=== PATIENT | male | born 1960 | race Caucasian/White ===

== ENCOUNTER 2019-12-20 13:05 | Outpatient (CLI) | payer OTHER, SELFPAY ==
--- NOTE | 2019-12-20 13:44 | MR_ITS ---
WS: [id number] MRI LEFT KNEE NONCONTRAST TECHNIQUE: Axial PD, coronal PD fat sat, coronal PD, sagittal PD, and sagittal PD fat-sat images obta ined. CLINICAL INFORMATION: LEFT KNEE INTERNAL DERANGEMENT COMPARISON: None. FINDINGS: Normal anatomic alignment. Anterior and posterior cruciate ligaments appear intact. Distal quadriceps and patella tendons are intact. Hypertrophic patella. Normal medial and lateral meniscus. No acute a ppearing meniscal tears. Mild chondromalacia patella. No subchondral edema. Normal medial and lateral patella retinaculum. Medial and lateral collateral ligaments appear intact . Normal tibial plateau. Normal popliteal fossa. Mild chondromalacia involving the medial and lateral joint compartments. MR/MR knee LT wo con* [id number] IMPRESSION: 1. Anterior posterior cruciate ligaments are intact. No evidence of high-grade injury. 2. Normal medial lateral meniscus. No acute appearing meniscal tears. 3. Mild chondromalacia patella. No subchondral edema. Hypertrophic patella. 4. Medial and lateral collateral ligaments are intact. 5. No other significant findings.
== END 2019-12-20 13:06 | disposition home or self-care (01) ==
PROVIDERS: PCP Internal Medicine; Visit Provider Internal Medicine
DX: M23.92 Unspecified internal derangement of left knee (principal); M22.42 Chondromalacia patellae, left knee
CPT/HCPCS: 73721

== ENCOUNTER 2020-01-03 09:38 | Outpatient (RCR) | payer OTHER, SELFPAY | END 2020-01-06 23:59 | disposition home or self-care (01) | LOC: SPT 09:38 | PROVIDERS: PCP Internal Medicine; Referring Provider Orthopaedic Surgery; Visit Provider Orthopaedic Surgery | DX: M25.562 Pain in left knee (principal) | CPT/HCPCS: 97032; 97110; 97161 ==

== ENCOUNTER 2020-01-07 06:00 | Outpatient (RCR) | payer OTHER, SELFPAY | END 2020-02-06 23:59 | disposition home or self-care (01) | LOC: SPT 06:00 | PROVIDERS: PCP Internal Medicine; Referring Provider Orthopaedic Surgery; Visit Provider Orthopaedic Surgery | DX: M25.562 Pain in left knee (principal) | CPT/HCPCS: 97032; 97110; G0283 ==

== ENCOUNTER 2021-03-22 11:53 | Outpatient (CLI) | payer BC, SELFPAY ==
[2021-03-22 12:15] VITALS: BMI 29.8
[2021-03-22 12:18] VITALS: BP 119/78; PULSE 103; RESP 18; TEMP 36.6; O2SAT 96
[2021-03-22 12:41] VITALS: BP 113/76; PULSE 93; RESP 18; TEMP 36.9; O2SAT 96
[2021-03-22 13:40] VITALS: BP 116/78; PULSE 92; RESP 18; TEMP 37.6; O2SAT 95
== END 2021-03-22 11:54 | disposition home or self-care (01) ==
LOC: OPS 11:59
PROVIDERS: PCP Internal Medicine; Visit Provider Nurse Practitioner
DX: U07.1 COVID-19 (principal)
CPT/HCPCS: 96365

== ENCOUNTER 2021-06-05 08:08 | Observation (INO) | payer BC, SELFPAY ==
[2021-06-05] VITALS (10 sets, daily range): BP systolic 125–158; BP diastolic 74–96; PULSE 71–101; RESP 16–18; TEMP 36.6–36.9; O2SAT 94–99; BMI 28.7
--- NOTE | 2021-06-05 08:39 | CT_ITS ---
WS: [id number] CT HEAD TECHNIQUE: Noncontrast CT of the head obtained from the skullbase to the vertex. CLINICAL INFORMATION: Symptoms of Acute Stroke COMPARISON: May 05, 2017 DLP: 1063.[address] scans at [facility] use at least one of these dose optimization techniques: automated e xposure control; mA and/or kV adjustment per patient size (includes targeted exams where dose is matc hed to clinical indication); or iterative reconstruction. FINDINGS: No evidence of intracranial hemorrhage or mass effect. Ventricular system and basal cisterns are mast nt. Mild small vessel changes with mild parenchymal volume loss. No extra-axial fluid collections. No evidence of mass or mass effect. Normal moreno-white differentiation. Mild mucosal thickening ethmoid air cells. Mastoid air cells well aerated. Normal visualized soft tis sues. CT/CT head wo con* [id number] IMPRESSION: 1. No evidence of intracranial hemorrhage or mass effect. 2. Mild small vessel changes. Mild parenchymal volume loss. 3. Mild mucosal thickening with partial opacification ethmoid air cells. 4. Mastoid air cells well aerated. 5. No acute intracranial findings. Notified Epifanio Ramsey MD at 06/05/2021 8:58 AM.
--- NOTE | 2021-06-05 08:39 | ECG_ITS ---
[facility] Test Date: 2021-06-05 Pat Name: Austen Bowers Department: Room: Gender: Male Pelletizer: : 1960 Requested By: Epifanio Ramsey Order Number: [id number] Joyce MD: Manuel Davis M.D. Measurements Intervals [place] Rate: 72 P: 17 WV: 164 QRS: -3 QRSD: 97 T: 35 QT: 374 QTc: 411 Interpretive Statements SINUS RHYTHM No previous ECG available for comparison Electronically Signed On 06-05-2021 20:44:42 NICKEL PLANT OPERATOR by Manuel Davis M.D. [id number]
--- NOTE | 2021-06-05 08:44 | W.ED.GENADLT ---
HPI - General Adult General: Chief complaint: General Medical Stated complaint: NUMBNESS IN FACE/ARMS AFTER 2ND COVID SHOT Time Seen by Provider: 06/05/21 08:27 History of Present Illness: HPI narrative: Patient comes in with concerns for left-sided numbness and weakness. States that he got his second Covid shot in his right arm at 7 AM. States that shortly after that he developed numbness in the left side of his face that is progressed to his left arm. He also describes some weakness in the left arm when compared to the right. He denies any fever, cough, congestion, vomiting, diarrhea. Denies any history of smoking and/or coronary artery disease, or stroke/TIA. Associated symptoms: Deny chest pain, dyspnea, headache(s), nausea, rash, palpitations or vomiting Review of Systems Const: Denies: fever(s) or body aches Eyes: Denies: change in vision or blurry vision ENMT: Denies: throat pain or odynophagia Card: Denies: chest pain or palpitations Resp: Denies: dyspnea or productive cough GI: Denies: abdominal pain, nausea or vomiting : Denies: flank pain or dysuria Musc: Denies: neck pain or back pain Skin/Breast: Denies: rash or pruritus Neuro: Reports: numbness in extremities and weakness in extremities; Denies: headache(s) Psych: Denies: anxiety or change in appetite Endo: Denies: polyuria or excessive sweating Physical Exam Const: COMMON NORMALS: no acute distress, patient oriented x3, healthy appearing and alert HENMT: COMMON NORMALS: normocephalic and atraumatic HEAD & SCALP: normocephalic and atraumatic Eye: COMMON NORMALS: Equal, round and reactive pupils present and EOMs intact bilaterally PUPIL: Yes Equal, round and reactive pupils present Neck/C-Spine: COMMON NORMALS: full ROM and supple Resp: COMMON NORMALS: normal respiratory effort, No retractions and No use of accessory muscles Cardio: COMMON NORMALS: regular rate and regular rhythm RATE: regular rate RHYTHM: regular rhythm GI: COMMON NORMALS: Normal to inspection, nondistended, normoactive bowel sounds present, Soft to palpation and non-tender PALPATION: Yes Soft to palpation Back/Pelvis: COMMON NORMALS: thoracic and lumbar spine normal to inspection and no thoracic nor lumbar tenderness Extremity: COMMON NORMALS: normal to inspection and full ROM Neuro: COMMON NORMALS: patient oriented x3 SENSORIUM/ORIENTATION: Yes alert SPEECH: speech normal SENSORY EXAM: No extremities (Decreased pinprick sensation to the left arm and left leg) MOTOR EXAM: No 5/5 motor strength present throughout (Strength is 4/5 in the left arm and left leg, no drift) Psych: COMMON NORMALS: mental status grossly normal and cooperative Skin: COMMON NORMALS: no rashes or lesions noted and no wounds GENERAL SKIN EXAM: no rashes or lesions noted Course ED course: Patient comes in with concerns for left-sided numbness and weakness. States he got his second Covid shot in the right arm this morning around 7 AM, then shortly thereafter developed left facial numbness that proceeded to his left arm and left leg. On physical exam he has no drift, he does have decreased sensation in the left side of his face, left arm, left leg. Strength is 5 out of 5 in the right side, and 4/5 on the left. The patient's NIHSS is 1 for sensation. He has no drift of his extremities, however he does have decreased strength in the left side. We activated the stroke alert. Will check stat CT, labs, and reassess. Reevaluation(s): Reevaluation #1: On reassessment the patient symptoms have almost completely resolved at this time. I talked about the test results. I discussed the case with the hospitalist, and we will admit for TIA work-up. Vital Signs: Vital signs: Vital Signs Temperature 97.9 F 06/05/21 08:16 Pulse Rate 76 06/05/21 09:01 Respiratory Rate 17 06/05/21 09:01 Blood Pressure 145/96 06/05/21 09:01 Pulse Oximetry 98 06/05/21 09:01 [facility] - General Adult Lab Data: Labs: Lab Results 06/05/21 06/05/21 06/05/21 08:43 08:45 08:45 WBC 5.6 10^3/uL 10^3/ uL (4.0-10.0) RBC 5.66 10^6/uL H 10 ^6/uL (4.1-5.3) Hgb 16.4 g/dL g/dL (11.7-16.6) Hct 48.6 % % (42.0-52.0) MCV 85.9 fl fl (80-94) MCH 29.0 pg pg (28.0-34.0) MCHC 33.7 g/dL g/dL (30.0-36.0) RDW 13.2 % % (12.1-15.1) Plt Count 255 10^3/cmm 10^3 /cmm (130-400) MPV 8.9 fL fL (7.4-10.4) Neut % (Auto) 47.8 % % Lymph % (Auto) 35.3 % % [place] % (Auto) 11.2 % % Eos % (Auto) 4.1 % % Baso % (Auto) 1.2 % % Neut # (Auto) 2.70 10^3/uL 10^3 /uL (1.8-7.7) Lymph # (Auto) 2.0 10^3/uL 10^3/ uL (0.8-4.8) [place] # (Auto) 0.6 10^3/uL 10^3/ uL (0.2-0.9) Eos # (Auto) 0.2 10^3/uL 10^3/ uL (0.0-0.8) Baso # (Auto) 0.1 10^3/uL 10^3/ uL (0.0-0.1) Nucleated RBC % (a uto) 0 % % Nucleated RBCs # 0.0 /100WBC /100W BC PT 12.40 SECONDS SEC ONDS (12.1-14.9) INR 0.90 (0.8-1.2) APTT 30.0 SECONDS SECO NDS (23.9-36.7) Sodium 139 mmol/L mmol/L (136-145) Potassium 4.6 mmol/L mmol/L (3.5-5.1) Chloride 103 mmol/L mmol/L (98-107) Carbon Dioxide 26 mmol/L mmol/L (22-29) Anion Gap 14.6 (5-19) BUN 10 mg/dL mg/dL (8-23) Creatinine 0.7 mg/dL mg/dL (0.7-1.2) GFR Calculation 113.9 mL/min mL/m in (90-130) Glucose 104 mg/dL mg/dL (65-115) POC Glucose Calculated Osmolal ity 287 mOsm/kg mOsm/ kg (285-295) Calcium 9.0 mg/dL mg/dL (8.5-10.5) Total Bilirubin 1.1 mg/dL mg/dL (0.15-1.2) AST 24 U/L U/L (0-40) ALT 21 U/L U/L (0-41) Alkaline Phosphata se 69 IU/L IU/L (40-130) Total Protein 7.7 g/dL g/dL (6.6-8.7) Albumin 4.3 g/dL g/dL (3.5-5.2) Globulin 3.4 g/dL g/dL (1.3-4.6) 06/05/21 09:06 WBC RBC Hgb Hct MCV MCH MCHC RDW Plt Count MPV Neut % (Auto) Lymph % (Auto) [place] % (Auto) Eos % (Auto) Baso % (Auto) Neut # (Auto) Lymph # (Auto) [place] # (Auto) Eos # (Auto) Baso # (Auto) Nucleated RBC % (a uto) Nucleated RBCs # PT INR APTT Sodium Potassium Chloride Carbon Dioxide Anion Gap BUN Creatinine GFR Calculation Glucose POC Glucose 110 mg/dL mg/dL (70-110) Calculated Osmolal ity Calcium Total Bilirubin AST ALT Alkaline Phosphata se Total Protein Albumin Globulin Discharge Plan Discharge Patient Disposition: Placed in Observation Clinical Impression: Transient ischemic attack Coding Level of Care Code ED Long Lines Operator for Sivakumar Fwd Exam Comprehensive
[2021-06-05 08:52] LABS: Basophils # 0.1 10^3/uL (0.0-0.1); Basophils % 1.2 %; Eosinophils # 0.2 10^3/uL (0.0-0.8); Eosinophils % 4.1 %; Hematocrit 48.6 % (42.0-52.0); Hemoglobin 16.4 g/dL (11.7-16.6); Lymphocytes % 35.3 %; Mean Corpuscular HGB Conc 33.7 g/dL (30.0-36.0); Mean Corpuscular Volume 85.9 fl (80-94); Mean Platelet Volume 8.9 fL (7.4-10.4); Monocytes # 0.6 10^3/uL (0.2-0.9); Monocytes % 11.2 %; Neutrophils % 47.8 %; Nucleated Red Blood Cells % 0 %; Platelet Count 255 10^3/cmm (130-400); Red Blood Count 5.66 10^6/uL (4.1-5.3); Red Cell Distribution Width 13.2 % (12.1-15.1); White Blood Count 5.6 10^3/uL (4.0-10.0)
[2021-06-05 09:09] LABS: Glucose Point of Care 110 mg/dL (70-110)
[2021-06-05 09:19] LABS: Alanine Aminotransferase 21 U/L (0-41); Albumin Level 4.3 g/dL (3.5-5.2); Alkaline Phosphatase 69 IU/L (40-130); Anion Gap 14.6 (5-19); Aspartate Amino Transferase 24 U/L (0-40); Blood Urea Nitrogen 10 mg/dL (8-23); Carbon Dioxide 26 mmol/L (22-29); Chloride 103 mmol/L (98-107); Globulin 3.4 g/dL (1.3-4.6); Glomerular Filtration Rate 113.9 mL/min (90-130); Glucose 104 mg/dL (65-115); Osmolality Calculated 287 mOsm/kg (285-295); Potassium 4.6 mmol/L (3.5-5.1); Sodium 139 mmol/L (136-145); Total Bilirubin 1.1 mg/dL (0.15-1.2); Total Protein 7.7 g/dL (6.6-8.7)
--- NOTE | 2021-06-05 10:12 | PC.NURSE ---
Unable to place dacosta cath.
[2021-06-05 10:19] LABS: Add Urine Microscopic? NO; Charge for UA Resulting for Rev
--- NOTE | 2021-06-05 10:23 | P.HP_ITS ---
Providers/Chief Complaint Primary Care Provider: Gavin Lisa DO Chief Complaint: NUMBNESS IN FACE/ARMS AFTER 2ND COVID SHOT History of Present Illness Austen Bowers is a 61 year old male with past medical history of hypertension, arthritis who is presenting with complaints of left-sided numbness, paresthesias and weakness. The symptoms started earlier this morning after he had Covid vaccination second dose (moderna). The patient reports history of Covid this March which caused lingering left distal upper extremity tingling. The patient states that his symptoms this morning are not related to that existing problem. He describes that shortly after the vaccination he developed first tingling and numbness in the left side of the face. Then left upper extremity and left lower extremity got numb. He describes associated weakness which is currently improving. He describes feeling loopy and confused for short per iod of time. This has resolved currently. Denies any dysarthria or facial asymmetry. He feels that the weakness in the left lower extremity still persists. He denies any previous episodes of stroke. CT of the head was unremarkable. EKG showed normal sinus without any abnormal findings. Vital signs are reviewed and are stable. Again his symptoms are currently resolving. He denies any associated chest pain, palpitations, shortness of breath, wheezes. Review of Systems General: Reports: 10 or more systems reviewed and unremarkable except in HPI and below Medications/Allergies Home Medications Medication Instructions Recorded Confirmed Last Taken Type acetaminophen 300 mg-codeine 30 mg 1 tab PO BID PRN 12/29/19 06/05/21 Unknown History tablet lisinopril 10 mg tablet 10 mg PO DAILY 12/29/19 06/05/21 06/04/21 History metoprolol tartrate 25 mg PO BID 06/05/21 06/05/21 06/04/21 History Allergies Allergy/AdvReac Type Severity Reaction Status Date / Time vega Allergy Unknown Verified 06/05/21 10:14 Penicillins Allergy Unknown Verified 12/29/19 14:50 Vitals/I&O/Wt Last Vital Signs Temp 97.9 F 06/05/21 08:16 Pulse 81 06/05/21 10:09 Resp 17 06/05/21 10:09 BP 154/91 06/05/21 10:09 Pulse Ox 99 06/05/21 10:09 Weight last 48 hrs Weight 80.739 kg Physical Exam Narrative: EXAM NARRATIVE: The patient is awake alert and oriented x4. No acute distress. Mood and affect are appropriate. Responses are adequate. Skin is warm and dry. Eyes PERRL, extraocular muscles are intact. Normal speech. No facial asymmetry. Cranial nerves II through XII are grossly intact. Moist mucous membranes Neck supple. No JVD Lungs are clear to auscultation bilaterally. No respiratory distress. No wh eezes or crackles. Heart S1, S2, regular Abdomen soft, nontender, bowel sounds are present Extremities no edema cyanosis or calf tenderness bilaterally Neurologic examination. 4 out of 5 weakness in the left upper extremity. Examination in the lower extremities is somewhat limited due to chronic pain and arthritis in the lower extremities. I was unable to fully evaluate the strength but it appears that he has probably 4 out of 5 weakness in the left lower extremity. Cerebellar tests seem to be intact provided some limitations due to the arthritis. Data : 06/05/21 08:43 06/05/21 08:45 Other Labs: Laboratory Results WBC 5.6 10^3/uL (4.0-10.0) 06/05/21 08:43 RBC 5.66 10^6/uL (4.1-5.3) H 06/05/21 08:43 Hgb 16.4 g/dL (11.7-16.6) 06/05/21 08:43 Hct 48.6 % (42.0-52.0) 06/05/21 08:43 MCV 85.9 fl (80-94) 06/05/21 08:43 MCH 29.0 pg (28.0-34.0) 06/05/21 08:43 MCHC 33.7 g/dL (30.0-36.0) 06/05/21 08:43 RDW 13.2 % (12.1-15.1) 06/05/21 08:43 Plt Count 255 10^3/cmm (130-400) 06/05/21 08:43 MPV 8.9 fL (7.4-10.4) 06/05/21 08:43 Neut % (Auto) 47.8 % 06/05/21 08:43 Lymph % (Auto) 35.3 % 06/05/21 08:43 [place] % (Auto) 11.2 % 06/05/21 08:43 Eos % (Auto) 4.1 % 06/05/21 08:43 Baso % (Auto) 1.2 % 06/05/21 08:43 Neut # (Auto) 2.70 10^3/uL (1.8-7.7) 06/05/21 08:43 Lymph # (Auto) 2.0 10^3/uL (0.8-4.8) 06/05/21 08:43 [place] # (Auto) 0.6 10^3/uL (0.2-0.9) 06/05/21 08:43 Eos # (Auto) 0.2 10^3/uL (0.0-0.8) 06/05/21 08:43 Baso # (Auto) 0.1 10^3/uL (0.0-0.1) 06/05/21 08:43 Nucleated RBC % (auto) 0 % 06/05/21 08:43 Nucleated RBCs # 0.0 /100WBC 06/05/21 08:43 PT 12.40 SECONDS (12.1-14.9) 06/05/21 08:45 INR 0.90 (0.8-1.2) 06/05/21 08:45 APTT 30.0 SECONDS (23.9-36.7) 06/05/21 08:45 Sodium 139 mmol/L (136-145) 06/05/21 08:45 Potassium 4.6 mmol/L (3.5-5.1) 06/05/21 08:45 Chloride 103 mmol/L (98-107) 06/05/21 08:45 Carbon Dioxide 26 mmol/L (22-29) 06/05/21 08:45 Anion Gap 14.6 (5-19) 06/05/21 08:45 BUN 10 mg/dL (8-23) 06/05/21 08:45 Creatinine 0.7 mg/dL (0.7-1.2) 06/05/21 08:45 GFR Calculation 113.9 mL/min (90-130) 06/05/21 08:45 Glucose 104 mg/dL (65-115) 06/05/21 08:45 POC Glucose 110 mg/dL (70-110) 06/05/21 09:06 Calculated Osmolality 287 mOsm/kg (285-295) 06/05/21 08:45 Calcium 9.0 mg/dL (8.5-10.5) 06/05/21 08:45 Total Bilirubin 1.1 mg/dL (0.15-1.2) 06/05/21 08:45 AST 24 U/L (0-40) 06/05/21 08:45 ALT 21 U/L (0-41) 06/05/21 08:45 Alkaline Phosphatase 69 IU/L (40-130) 06/05/21 08:45 Total Protein 7.7 g/dL (6.6-8.7) 06/05/21 08:45 Albumin 4.3 g/dL (3.5-5.2) 06/05/21 08:45 Globulin 3.4 g/dL (1.3-4.6) 06/05/21 08:45 Urine Color Straw (Yellow) 06/05/21 10:05 Urine Appearance Clear (CLEAR) 06/05/21 10:05 Urine pH 7 (5-7) 06/05/21 10:05 Ur Specific [place] 1.010 (1.005-1.030) 06/05/21 10:05 Urine Protein Neg (Negative) 06/05/21 10:05 Urine Glucose (UA) Norm (Normal) 06/05/21 10:05 Urine Ketones Negative (Negative) 06/05/21 10:05 Urine Blood Neg (Negative) 06/05/21 10:05 Urine Nitrate Negative (Negative) 06/05/21 10:05 Urine Bilirubin Neg (Negative) 06/05/21 10:05 Urine Urobilinogen Norm mg/dL (Negative) 06/05/21 10:05 Ur Leukocyte Esterase Negative (Negative) 06/05/21 10:[address] 06/05/21 08:39 IMPRESSION: 1. No evidence of intracranial hemorrhage or mass effect. 2. Mild small vessel changes. Mild parenchymal volume loss. 3. Mild mucosal thickening with partial opacification ethmoid air cells. 4. Mastoid air cells well aerated. 5. No acute intracranial findings. Notified Epifanio Ramsey MD at 06/05/2021 8:58 AM. A&P Additional A&P Information 61-year-old male with past medical history of hypertension, Covid in March, who received second dose of modern vaccine today who presents with complaints of confusion, left-sided tingling, numbness and weakness which are currently resolving. ? TIA. Will admit for observation to rule out stroke. Will initiate stroke protocol including work-up: MRI brain, MRA neck and head, echo, fasting lipids. Will order labetalol for excessive blood pressure elevation per stroke protocol. Aspirin. We will hold his home blood pressure medications for now. Hypertension. As above. DVT prophylaxis. Lovenox. CODE STATUS. The patient wants to be full code. The plan of care was discussed with the patient and his who is at the bedside. They verbalized understanding and agreement with the plan of care. They verbalized satisfaction with the conversation. Attestations Medical Necessity Statement*: Observation Coding Level of Care Code Acute Maid Supervisor for Sivakumar Denney
[2021-06-05 10:26] LABS: Bilirubin Urine Neg (Negative); Blood Urine Neg (Negative); Glucose Urine UA Norm (Normal); Ketones Urine Negative (Negative); Leukocyte Esterase Urine Negative (Negative); Nitrate Urine Negative (Negative); Protein Urine Neg (Negative); Urine Appearance Clear (CLEAR); Urine Color Straw (Yellow); Urobilinogen Urine Norm (Negative); pH Urine 7 (5-7)
[2021-06-05 10:32] LABS: Amphetamines Screen Urine Negative (Negative); Barbiturates Screen Urine Negative (Negative); Benzodiazepines Screen Urine Negative (Negative); Cocaine Screen Urine Negative (Negative); Opiate Screen Urine Negative (Negative); PCP Screen Urine Negative (Negative); THC Screen Urine Negative (Negative)
[2021-06-05] MEDS: enoxaparin 40 mg/0.4 mL Syringe SUBCUT (18:34)
[2021-06-06] VITALS: BP 154/90; PULSE 89; RESP 18; TEMP 36.9; O2SAT 96
[2021-06-06 03:59] VITALS: BP 101/68; PULSE 89; RESP 18; TEMP 36.9; O2SAT 95
--- NOTE | 2021-06-06 06:00 | USCV_ITS ---
Austen Bowers Age: 61 Gender: M : 1960 Exam Date: 06/06/2021 06:17 Ordering Phys: Julio C Sanchez MD Technologist: BRANDON Exam Location: [facility] [place] Indication: CVA BP: 101 / 68 HR: 85 Rhythm: Sinus Technical Quality: Technically difficult study MEASUREMENTS (Male / Female) Normal Values 2D ECHO LV Diastolic Diameter PLAX 3.3 cm 4.2 - 5.9 / 3.9 - 5.3 cm LV Systolic Diameter PLAX 2.4 cm IVS Diastolic Thickness 1.2 cm 0.6 - 1.0 / 0.6 - 0.9 cm IVS Systolic Thickness 2.2 cm LVPW Diastolic Thickness 1.4 cm 0.6 - 1.0 / 0.6 - 0.9 cm LVPW Systolic Thickness 1.7 cm LVOT Diameter 2.0 cm LV Ejection Fraction 2D Teich 55.9 % LV Ejection Fraction MOD 2C 58.8 % LV Ejection Fraction 2C AL 60.7 % LA Diameter 2.9 cm LA Width 2.6 cm LA Height 3.4 cm RA Width 2.2 cm RA Height 3.8 cm Aorta at Sinotubular Diameter 2.0 cm M-MODE Aortic Annulus Diameter 2.7 cm LA Ao Ratio MM 1.2 MV E Point Septal Separation 0.6 cm DOPPLER AV Peak Velocity 130.7 cm/s LVOT Peak Velocity 86.0 cm/s AV Area Cont Eq vti 2.2 cm squared AV Area Cont Eq pk 2.1 cm squared MV Peak Velocity 99.0 cm/s MV Area PHT 5.0 cm squared Mitral E to A Ratio 0.8 MV E' Velocity 32.0 cm/s Mitral E to MV E' Ratio 10.7 Mitral E to LV E' Lateral Ratio 9.2 Mitral E to LV E' Septal Ratio 12.9 TR Peak Velocity 233.0 cm/s TR Peak Gradient 21.7 mmHg TV Peak E Velocity 62.7 cm/s Right Atrial Pressure 3.0 mmHg Pulmonary Artery Systolic Pressu 24.7 mmHg PV Peak Velocity 127.0 cm/s RV Acceleration Time 0.1 s RV Ejection Time 0.3 s RV AcT/ET 0.5 FINDINGS Left Ventricle Normal left ventricular size. LV systolic function is normal with EF of 55-60%. No regional wall motion abnormalities. Grade 1 diastolic dysfunction Right Ventricle The right ventricle is normal in size and function. Right Atrium The right atrium is normal in size. Left Atrium The left atrium is normal in size. Mitral Valve Structurally normal mitral valve without significant stenosis or prolapse. There is no mitral regurgitation. Aortic Valve Grossly normal without significant stenosis. There is no aortic regurgitation. Tricuspid Valve Grossly normal without significant stenosis or regurgitation. Insufficient TR jet to calculate RVSP Pulmonic Valve Not well visualized Pericardium Normal pericardium without effusion. Aorta Normal ascending aorta dimension. CONCLUSIONS Technically difficult study because of poor ultrasonic windows. LV systolic function is normal with EF of 55-60% Grade 1 diastolic dysfunction No significant valvular heart disease Compared to prior echocardiogram from 05/25/2017, no significant changes are seen. Jose Francisco Ordoñez MD (Electronically Signed) Final Date: 06 June 2021 08:01 S
[2021-06-06 06:06] LABS: Chol HDL Ratio 5.15 mg/dL (1.0-5.00); Cholesterol 206 mg/dL (0-200); HDL Cholesterol 40 mg/dL (60-100); LDL Cholesterol Calculated 131 mg/dL (50-129); LDL HDL Ratio 3.28 RATIO (0.00-3.22); Triglycerides 175 mg/dL (0-150)
[2021-06-06 06:24] LABS: Estmated Average Glucose 103; Hemoglobin A1C 5.2 % (4.0-6.0)
[2021-06-06 07:34] VITALS: BP 122/84; PULSE 94; RESP 16; TEMP 36.7; O2SAT 93
[2021-06-06 08:05] VITALS: PULSE 89; RESP 15; O2SAT 97
[2021-06-06] MEDS: aspirin 81 mg EC Tablet PO (09:48)
--- NOTE | 2021-06-06 10:18 | PC.OT ---
OT EVALUATION ORDERS RECEIVED. OT SCREEN COMPLETED; NO SERVICES REQUIRED AT THIS TIME
--- NOTE | 2021-06-06 10:30 | MR_ITS ---
WS: [id number] MRI HEAD WITH CONTRAST TECHNIQUE: Sagittal T1, T2 axial, T2 axial FLAIR, axial susceptibility weighted imaging, axial diffus ion weighted images, and coronal T2 images were obtained. Pre and post-T1 axial and post T1 coronal i mages. ADC and FSPGR images. CLINICAL INFORMATION: CVA COMPARISON: CT June 05, 2021 FINDINGS: No evidence of restricted diffusion to suggest acute ischemia. Ventricular system and basal cisterns are patent. Mild small vessel changes with mild parenchymal volume loss. Normal posterior fossa. Norm al vascular flow voids at the skull base. No extra-axial fluid collections. No evidence of mass or ma ss effect. Partial opacification of the ethmoid air cells. Maxillary sinuses are well aerated. Small amount of fluid and mucosal thickening in the sphenoid sinuses. Peripheral enhancing T1 hyperintense lesion likely retention cyst or Tornwaldt cyst in the posterior nasopharynx with proteinaceous debris measuring 11 x 9 mm.No hemosiderin on susceptibly weighted imag es. Normal optic chiasm and pituitary infundibulum. Temporal lobes and hippocampal formations are nor mal in appearance. No abnormal intracranial enhancement. Normal visualized dural venous sinuses. MR/MR head wo/w con [id number] IMPRESSION: 1. No evidence of restricted diffusion to suggest acute ischemia. 2. Mild small vessel changes with moderate parenchymal volume loss. 3. No hemosiderin on the susceptibly weighted images. 4. Partial opacification of the ethmoid air cells compatible with sinusitis. S mall amount of fluid in the sphenoid sinus. 5. Peripheral enhancing T1 hyperintense lesion likely retention cyst or Tornwa ldt cyst in the posterior nasopharynx with proteinaceous debris measuring 11 x 9 mm. 6. No other significant findings.
--- NOTE | 2021-06-06 10:30 | MR_ITS ---
WS: [id number] MRA CAROTID WITHOUT AND WITH GADOLINIUM ENHANCEMENT TECHNIQUE: Axial 2-D TOF and gadolinium bolus images obtained with axial images and axial, sagittal, and coronal 2-D reformatted images. CLINICAL INFORMATION: CVA COMPARISON: None. FINDINGS: Some images degraded by patient motion and venous contamination. Codominant and patent vertebral arteries bilaterally. Vertebral arteries are patent to the vertebroba silar junction. No flow-limiting stenosis. RIGHT: Right common carotid artery is patent. No significant right ICA stenosis. ICA is patent to the skull base. LEFT: Left common carotid artery is patent. No significant left ICA stenosis. Left ICA is patent to t he skull base. MR/MR angio neck w con* [id number] IMPRESSION: Exam is somewhat limited due to venous contamination and motion art ifact. 1. Codominant and patent vertebral arteries bilaterally. No flow-limiting sten osis. 2. No flow-limiting ICA stenosis. Both ICAs are patent to the skull base.
--- NOTE | 2021-06-06 10:31 | PC.CHAP ---
Pastoral Care Encounter/Spiritual Assessment Type of Contact [] Declined relay tester visit [] Patient/Family/Request visit [] Outpatient visit [] Follow-up visit [] Physician referral [] Code/Alert [x] Routine visit [] Staff referral [] Actively dying [] Patient sleeping [] Family support [] [] Out of room [] Palliative care [] [x] Receiving care in room [] Pre-surgical visit [] Trauma [x] Long length of stay [] ICU visit [x] Other: coved rel;tyler with staff Relational/Emotional Strength [] Patient feels connected with others/family/visitors/staff [] Distress [] Loneliness/isolation [] Abandonment Spirituality of Patient [] Person of Beronica [] Attends Samaritan of their [place] [] Believes in Prayer [] Reads Bible or Orthodox materials [] There are Spiritual issues to be addressed Mold Maker Plaster Interventions [] Prayer [] Active listening [] Non-anxious presence [] Spiritual/emotional support [] Crisis/trauma care [] Spiritual counseling [] Bereavement support [] Provided bereavement packet [] Provided Bible/devotional materials [] Provided toy/stuffed animal, coloring book to patient or family member [] Provided Communion [] Anointing/[place] [] Salvation [] Completed spiritual assessment [] Other: Impact on Illness or Injury [] Angry [] Fearful [] Anxious [] Often cries [] Exhaustion [] Unable to work [] Unable to attend mandaeism [] Unable to walk/stand [] Unable to read [] Unable to drive [] Unable to eat/drink [] Unable to sleep [] Unable to be with family [] Patient intubated [] Other: Summary coved rel;tyler with staff Time spent with patient 5 mins
[2021-06-06 11:35] VITALS: BP 120/80; PULSE 100; RESP 16; TEMP 36.8; O2SAT 95
[2021-06-06] MEDS: gadobenate dimeglumine 20 mL vial IV (12:59)
--- NOTE | 2021-06-06 13:53 | PM.DCS ---
Discharge Providers Date of Admission: 06/05/21 09:53 Date of Discharge: June 06, 2021 Attending Provider at Admission: Julio C Sanchez Attending Provider at Discharge: Julio C Sanchez Primary Care Provider: Gavin Lisa DO Reason for Visit Reason for Visit: NUMBNESS IN FACE/ARMS AFTER 2ND COVID SHOT Hospital Course Hospital Course Please see patient's H&P, consult notes, progress notes, ER notes for more details. Please see radiology, lab, echo reports. Austen Bowers is a 61 year old male with past medical history of hypertension, arthritis who is presenting with complaints of left-sided numbness, paresthesias and weakness. The symptoms started yesterday morning after he had Covid vaccination second dose (moderna). The patient reports history of Covid infection this March which caused lingering left distal upper extremity tingling. The patient states that his symptoms yesterday morning were not related to that existing problem. He describes that shortly after the vaccination he developed first tingling and numbness in the left side of the face. Then left upper extremity and left lower extremity got numb. He describes associated weakness which is currently resolved. He describes feeling loopy and confused for short period of time. Denies any dysarthria or facial asymmetry. CT of the head was unremarkable. EKG showed normal sinus without any abnormal findings. Vital signs are reviewed and are stable. He denies any associated chest pain, palpitations, shortness of breath, wheezes. Stroke work-up so far was unremarkable. TIA is possible. The patient was also found to have uncontrolled dyslipidemia. He started on aspirin and Lipitor. Please continue monitoring liver function tests, lipid panel. I am not sure whether his symptoms are related to vaccination. I asked him to speak with his primary care physician before he receives new vaccination dose. Accidental finding of sinusitis and sinus cysts on MRI. However the patient is a symptomatic. Referral is provided. The patient has chronic arthritis in the lower extremities which limits physical examination particularly in the left lower extremity. The symptoms seem to be chronic. Outpatient follow-up with the primary care team is recommended. Currently the patient is feeling much better. He reports mild tingling in the left upper extremity. The numbness and tingling elsewhere has resolved. Still has mild weakness in the left lower extremity which could be due to his arthritis. He is eager to go home. He is asked to come back to emergency room if he develops any new or similar symptoms. He verbalized understanding and agreement. Physical Exam Narrative: EXAM NARRATIVE: Awake alert oriented. No acute distress. Mood and affect are appropriate. Responses are adequate. Skin is warm and dry. Moist mucous memories. Eyes PERRL, extraocular muscles are intact Cranial nerves II through XII are grossly intact Neck supple. No JVD Lungs are clear to auscultation bilaterally. No wheezes or crackles. Heart S1, S2, regular Abdomen soft, nontender, bowel sounds are present Extremities no edema cyanosis or calf tenderness bilaterally Neuro examination. Right lower extremity mobility is slightly limited due to arthritis. No numbness. No other weakness. Gait is reportedly normal. Cerebellar testing was limited due to arthritis in the lower extremity. Discharge Data Data Completed and Pending: Completed Studies During Hospitalization Category Date Time Status CT head wo con* [id number] 0450 Stat Cat Scan 06/05/21 08:39 Completed MR head wo/w con [id number] Routine MRI 06/06/21 10:30 Completed CV. echo complete * [id number] Routine Ultrasound 06/06/21 06:00 Completed Pending at discharge Category Date Time Status MR angio neck w c on* [id number] Routine MRI 06/06/21 10:30 Taken Labs from last 24 hours 06/06/21 06/06/21 05:10 05:10 Estimat Average Gl ucose 103 Hemoglobin A1c 5.2 Triglycerides 175 H Cholesterol 206 H LDL Cholesterol, C alc 131 H HDL Cholesterol 40 L LDL/HDL Ratio 3.28 H Cholesterol/HDL Ra lalo 5.15 H MRI report impressions MR/MR head wo/w con [id number] IMPRESSION: 1. No evidence of restricted diffusion to suggest acute ischemia. 2. Mild small vessel changes with moderate parenchymal volume loss. 3. No hemosiderin on the susceptibly weighted images. 4. Partial opacification of the ethmoid air cells compatible with sinusitis. Small amount of fluid in the sphenoid sinus. 5. 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 6. No other significant findings. Echo. Was unremarkable. MRA report. Pending. Vitals: Last Vital Signs Temp 98.2 F 06/06/21 11:35 Pulse 100 06/06/21 11:35 Resp 16 06/06/21 11:35 BP 120/80 06/06/21 11:35 Pulse Ox 95 06/06/21 11:35 Discharge Plan Discharge Patient Disposition: Home Condition: Stable Prescriptions: New atorvastatin 40 mg Tablet 20 mg PO BEDTIME Qty: 30 RF: 0 aspirin 81 mg Tablet,Delayed Release (Dr/Ec) 81 mg PO DAILY Qty: 30 RF: 0 Continued lisinopril 10 mg tablet 10 mg PO DAILY RF: 0 acetaminophen-codeine [Tylenol-Codeine #3] 300-30 mg tablet 1 tab PO BID PRN (Reason: Pain) RF: 0 metoprolol tartrate 50 mg tablet 25 mg PO BID RF: 0 Discharge Orders: Discharge Order (Routine); Ordered 06/06/21 Ordered By: Julio C Sanchez Other Ambulatory Orders: Comprehensive Metabolic Panel (Routine) Timeframe: 3 Weeks Facility: [facility] - Location: Lab - Main Lab Ordered By: Julio C Sanchez Lipid Panel (Routine) Timeframe: 3 Weeks Facility: 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 Light duty after that until feeling better/stronger. Please come back to emergency room if develop any new weakness, numbness, difficulties with sensation, vision, balance, gait, speech abnormalities, confusion or dizziness, chest pain, palpitations or any other new complaints. Follow-up with ENT doctor regarding sinus findings on MRI. Follow-up with your primary care physician. Further adjustments to your medications might be necessary. Discussed management of elevated cholesterol. Follow-up lab testing is needed. Discharge Attestations Time Spent in Discharge Care*: greater than 30 min Quality Metrics Clinical Quality Measures During this hospital stay, did patient experience: Stroke Contraindication to Antithrombotic: Antithrombotic prescribed Contraindication to Anticoagulation: Medical contraindication Contraindication to Statin: Statin prescribed Coding Level of Care Code Acute Chg FW DC note
--- NOTE | 2021-06-06 14:57 | PC.PT ---
PT order for evaluation received; visit with patient patient states no needs toileting independently ambulating independently, states no deficits, feels no need of PT evaluation at this time, and states plans to go home this afternoon. No further attempts to be made unless new orders received.
[2021-06-06 15:05] VITALS: BP 120/80; PULSE 100; RESP 16; TEMP 36.8; O2SAT 95
== END 2021-06-06 15:05 | disposition home or self-care (01) ==
LOC: ER 11:21 → MEDSURG 06-06 04:34 → ER IP 06-06 07:20 → MEDSURG 06-06 07:20
PROVIDERS: Admitting Provider Internal Medicine; Emergency Provider Emergency Medicine; PCP Internal Medicine; Visit Provider Internal Medicine
DX: R20.0 Anesthesia of skin (principal); I10 Essential (primary) hypertension; M19.90 Unspecified osteoarthritis, unspecified site; Z86.16 Personal history of COVID-19; Z03.89 Encounter for observation for other suspected diseases and conditions ruled out; E78.5 Hyperlipidemia, unspecified; J32.9 Chronic sinusitis, unspecified; J34.1 Cyst and mucocele of nose and nasal sinus
CPT/HCPCS: 36415; 36416; 70450; 70548; 70553; 80053; 80061; 80306; 81003; 82962; 83036; 85025; 85610; 85730; 92523; 92610; 93005; 93306; 96372; 99285; A9577; G0378; J1650

== ENCOUNTER 2022-01-27 15:30 | Outpatient (CLI) | payer OTHER, SELFPAY ==
--- NOTE | 2022-01-27 15:40 | MR_ITS ---
WS: [id number] MRI ORBITS with and without CONTRAST. COMPARISON: Prior MRI brain 06/06/2021 Multiplanar, multisequence imaging is performed with and without contrast. Sagittal and axial T1 fat sat sequences post-MultiHance 18 cc IV. Diffusion-weighted images are normal. No hemorrhage or mass effect. Very minimal small vessel ischemi c disease. Similar to the prior examination. There is no significant atrophy or large infarct. Ventri cles and extra-axial spaces are normal. Again noted is the well-circumscribed peripherally enhancing T1 hyperintense mass in the nasopharynx measuring 14 x 10 mm. Most consistent with a Tornwaldt cyst. Very similar in size to the prior study. No additional areas of abnormal enhancement. Imaging through the orbits and globes is negative. Optic nerves are symmetric bilaterally. No enlarge ment or atrophy. No increased T2 signal or enhancement. Moderate RIGHT anterior and posterior ethmoid air cell disease. No air-fluid levels. Mastoid air cell s are clear. No calvarial or scalp abnormality. Cerebellopontine angles are negative. Normal flow voi ds. MR/MR orbit face neck wo/w* [id number] IMPRESSION: 1. No acute infarct or hemorrhage. 2. Orbits and globes are negative. Optic nerves are negative. 3. 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 4. RIGHT ethmoid air cell disease.
[2022-01-27] MEDS: gadobenate dimeglumine 20 mL vial IV (16:34)
== END 2022-01-27 15:31 | disposition home or self-care (01) ==
PROVIDERS: PCP Internal Medicine; Visit Provider Ophthalmology
DX: S09.8XXA Other specified injuries of head, initial encounter (principal); X58.XXXA Exposure to other specified factors, initial encounter
CPT/HCPCS: 70543